=== PATIENT | female | born 1980 | race Caucasian/White ===

== ENCOUNTER 2022-06-17 17:37 | Emergency (ER) | payer OTHER, SELFPAY ==
--- NOTE | ~2022-06-17 | XR_ITS ---
XR hand RT min 3V 06/17/2022 17:51 Indication: Right hand trauma with pain Procedure: 3 views right hand Comparison: No prior studies for comparison. Findings: No acute fracture, subluxation or dislocation. No significant soft tissue abnormality. No f oreign bodies. Impression: 1: No acute fracture. Reviewed, dictated and finalized at location A. ULTING [employer] PROFESSIONAL Impression: 1: No acute fracture.
[2022-06-17 17:43] VITALS: BP 133/105; PULSE 81; RESP 20; TEMP 36.5; O2SAT 100
--- NOTE | 2022-06-17 18:04 | ED.UPPEXIN ---
HPI - Extremity Injury (Upper) General Chief Complaint: Extremity Injury, Upper Stated Complaint: right hand fingers injury Source: patient Mode of arrival: ambulatory Limitations: no limitations History of Present Illness HPI narrative: 41-year-old female presented for complaint of right hand pain after injury at work today. She endorses swelling and bruising to the 2nd finger middle joint. She states a metal bar fell on the hand around 1500. She reports the swelling has gone down. Denies numbness, tingling or weakness of the hand. Tinter Photograph strength is affected due to the swelling, reports full ROM. Applied ice to the site. Related Data Home Medications Medication Instructions Recorded Confirmed apixaban 5 mg tablet (Eliquis) 5 mg PO BID 06/17/22 06/17/22 Allergies Allergy/AdvReac Type Severity Reaction Status Date / Time sulfamethoxazole AdvReac Severe Vomiting Verified 06/17/22 17:47 [From Bactrim] trimethoprim [From Bactrim] AdvReac Severe Vomiting Verified 06/17/22 17:47 ciprofloxacin [From Cipro] AdvReac Intermediate Muscle Pain Verified 06/17/22 17:47 Review of Systems Review of Systems: CONSTITUTIONAL: Denies body aches, fever, chills EYES: Denies visual changes ENT: Denies rhinorrhea, congestion CARDIOVASCULAR: Denies chest pain, palpitations, or edema. RESPIRATORY: Denies cough or dyspnea. GASTROINTESTINAL: Denies abdominal pain, nausea, vomiting, or diarrhea. SKIN: Denies rash, itching, or wounds. MUSCULOSKELETAL: Per HPI NEUROLOGIC: Denies headache, numbness, tingling, or weakness. All systems reviewed & are unremarkable except as noted in HPI and below PMFSH Past Medical History Medical History Calcification of right breast on mammography Comments At time of signature, I have reviewed and agree with nursing past medical, surgical, social and family history unless otherwise noted. Please see nursing chart for further information. There is no relevant family history pertinent to the presenting complaint Exam Narrative: GENERAL: Well-appearing CHEST: Speaks in full sentences. No respiratory distress. HEART: Regular rate and rhythm. Normal and equal peripheral pulses. EXTREMITIES: right hand 2nd digit with mild swelling and bruising to the PIP joint. Hand has normal strength and sensation, normal range of motion to hand. No open wounds or obvious deformity; alignment normal, pulse palpable and equal bilaterally, skin warm, dry, pink. Capillary refill less than 3 seconds. SKIN: Warm, dry, no rash. NEURO: Alert and oriented x3. PSYCH: Normal mood and affect Course Course Emergency Course: Patient is aware of diagnosis, understands and agrees to treatment plan. Anticipatory guidance given. Patient agrees to follow-up as directed and is aware of reasons to seek care at the emergency department. Portions of this record may have been created with voice recognition software Level of Care: Express Care Visit Vital Signs Vital signs: Vital Signs Temperature 97.7 F 06/17/22 17:43 Pulse Rate 81 06/17/22 17:43 Respiratory Rate 20 06/17/22 17:43 Blood Pressure 133/105 H 06/17/22 17:43 Pulse Oximetry 100 06/17/22 17:43 Oxygen Delivery Room Air 06/17/22 17:43 Temperature 97.7 F 06/17/22 17:43 Pulse Rate 81 06/17/22 17:43 Respiratory Rate 20 06/17/22 17:43 Blood Pressure 133/105 H 06/17/22 17:43 Pulse Oximetry 100 06/17/22 17:43 Oxygen Delivery Room Air 06/17/22 17:43 Reviewed MDM - Extremity Injury (Upper) MDM Narrative Medical decision making narrative: results of x-ray reviewed with the patient. Advised supportive measures and signs/symptoms to go to the ER. Pt is appropriate for outpt treatment and f/u. Differential Diagnosis Differential diagnosis: Likely finger sprain, dislocation of finger, fracture of hand and other (contusion, fracture of finger) Imaging Data Radiologist's im
== END 2022-06-17 18:13 | disposition home or self-care (01) ==
PROVIDERS: Emergency Provider Nurse Practitioner Family; PCP Family Medicine
DX: S60.021A Contusion of right index finger without damage to nail, initial encounter (principal); W20.8XXA Other cause of strike by thrown, projected or falling object, initial encounter; Y99.0 Civilian activity done for income or pay
CPT/HCPCS: 73130; 99203; G0463

== ENCOUNTER 2022-07-07 09:17 | Outpatient (CLI) | payer OTHER, SELFPAY ==
--- NOTE | ~2022-07-07 | XR_ITS ---
Left Hand Technique: PA, oblique, and lateral views were obtained. Clinical History: Pain Findings: No acute fracture or dislocation is seen. Osseous alignment is anatomic. There is moderate to advanced degenerative disc narrowing at the third DIP joint. Remaining joint spaces are preserved. Soft tissues are unremarkable. 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 Reviewed, dictated and finalized at [facility]. TUTOR Impression: Moderate to severe degenerative change at the third DIP joint.
--- NOTE | ~2022-07-07 | XR_ITS ---
XR finger 3rd LT min 2V DATE: 07/07/2022 10:09 INDICATION: Lump on left third finger and distal interphalangeal joint for one month TECHNIQUE: 3 views COMPARISON: None FINDINGS: There is soft tissue swelling centered at the distal interphalangeal joint. There is severe joint space narrowing at the distal interphalangeal joint, joint space virtually obliterated, with m ild periarticular spurring. No erosive change. There is moderately prominent narrowing at the proximal interphalangeal joint. No fracture or dislocation, periosteal reaction or bone destruction. No subcutaneous emphysema or rad iopaque soft tissue foreign body. 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 AL OFFICE ASSISTANT IMPRESSION: Prominent soft tissue swelling centered at the distal interphalange al joint Osteoarthritic change at the proximal and particularly distal interphalangeal j jt
== END 2022-07-07 09:18 | disposition home or self-care (01) ==
LOC: CHSIMG 09:21
PROVIDERS: PCP Family Medicine; Visit Provider Family Medicine
DX: R22.32 Localized swelling, mass and lump, left upper limb (principal)
CPT/HCPCS: 73130; 73140

== ENCOUNTER 2022-09-02 16:25 | Emergency (ER) | payer OTHER, SELFPAY ==
[2022-09-02 16:39] VITALS: BP 121/75; PULSE 71; RESP 16; TEMP 36.5; O2SAT 100
--- NOTE | 2022-09-02 16:40 | ED.ANIMALBIT ---
HPI - Animal Bite General Chief Complaint: Animal Bite Stated Complaint: Cat Bite Time Seen by Provider: 09/02/22 16:40 Source: patient and RN notes reviewed History of Present Illness HPI narrative: Patient is a 41-year-old female who presents to urgent care with complaints of a cat bite to the left hand. 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 Patient states that the cat was seen at the vet's office and is up-to-date on vaccinations however did have an infection on its face. Patient is right-hand dominant. States that she clean the wound and has been putting Neosporin on it. No other acute complaints. Denies any fever, nausea or vomiting. Patient aware of the plan of care. Some parts of this dictation were generated by voice recognition software and may contain typographical and/or grammatical inaccuracies. Related Data Home Medications Medication Instructions Recorded Confirmed apixaban 5 mg tablet (Eliquis) 5 mg PO BID 06/17/22 09/02/22 metoprolol succinate 25 mg 25 mg PO DAILY 09/02/22 09/02/22 tablet,extended release 24 hr Allergies Allergy/AdvReac Type Severity Reaction Status Date / Time sulfamethoxazole AdvReac Severe Vomiting Verified 09/02/22 16:38 [From Bactrim] trimethoprim [From Bactrim] AdvReac Severe Vomiting Verified 09/02/22 16:38 ciprofloxacin [From Cipro] AdvReac Intermediate Muscle Pain Verified 09/02/22 16:38 Review of Systems Review of Systems: CONSTITUTIONAL: Denies fever, chills, or sweats. EYES: Denies visual changes, redness, or discharge. ENT: Denies rhinorrhea, congestion, sore throat, or otalgia. CARDIOVASCULAR: Denies chest pain, palpitations, or edema. RESPIRATORY: Denies cough or dyspnea. GASTROINTESTINAL: Denies abdominal pain, nausea, vomiting, or diarrhea. GENITOURINARY: Denies dysuria or hematuria. SKIN: Denies rash or itching. MUSCULOSKELETAL: Reports redness and swelling to the left hand NEUROLOGIC: Denies headache, numbness, or weakness. All other systems reviewed are negative, except as documented in HPI. [facility] Past Medical History Medical History Calcification of right breast on mammography Comments At the time of my signature, I reviewed and agree with the nursing past medical, surgical, social, and family history. There is no relevant family history pertinent to the patient complaint. Exam Narrative: GENERAL: This is a well-nourished, well-developed patient, in no apparent distress. HEAD: normocephalic, atraumatic. EYES: PERRL. Sclera clear/white. Vision is grossly intact. EARS: External ears normal NOSE: External nose normal with no obvious nasal discharge, nares without redness, no rhinorrhea. THROAT: Mucous membranes moist NECK: Neck supple NEURO: awake, alert, and oriented to person, place and time. There were no obvious focal neurologic abnormalities. EXTREMITIES: Mild edema with 5 x 4 cm of erythema surrounding 2 puncture wounds/cat bite to the ulnar aspect of the left dorsal hand. Positive strong left radial pulse with capillary refill less than 2 seconds. Range of motion to left upper extremity within normal limits. Course Course Level of Care: Express Care Visit Vital Signs Vital signs: Vital Signs Temperature 97.7 F 09/02/22 16:39 Pulse Rate 71 09/02/22 16:39 Respiratory Rate 16 09/02/22 16:39 Blood Pressure 121/75 09/02/22 16:39 Pulse Oximetry 100 09/02/22 16:39 Oxygen Delivery Room Air 09/02/22 16:39 Temperature 97.7 F 09/02/22 16:39 Pulse Rate 71 09/02/22 16:39 Respiratory Rate 16 09/02/22 16:39 Blood Pressure 121/75 09/02/22 16:39 Pulse Oximetry 100 09/02/22 16:39 Oxygen Delivery Room Air 09/02/22 16:39 reviewed MDM - Animal Bite MDM Narrative Medical decision making narrative: Advised patient to keep the wound clean with plain dial soap
== END 2022-09-02 16:55 | disposition home or self-care (01) ==
PROVIDERS: Emergency Provider Nurse Practitioner Family; PCP Family Medicine
DX: S61.432A Puncture wound without foreign body of left hand, initial encounter (principal); W55.01XA Bitten by cat, initial encounter
CPT/HCPCS: 99213; G0463

== ENCOUNTER 2022-12-05 12:24 | Outpatient (CLI) | payer OTHER, SELFPAY ==
--- NOTE | 2022-12-05 12:53 | ECG_ITS ---
Measurements Intervals [place] Rate: 82 P: 52 ND: 154 QRS: 66 QRSD: 84 T: -8 QT: 375 QTc: 441 Interpretive Statements SINUS RHYTHM WITH SINUS ARRHYTHMIA LOW QRS VOLTAGE IN PRECORDIAL LEADS [QRS DEFLECTION < 1.0 mV IN CHEST LEADS] NONSPECIFIC T-WAVE ABNORMALITY BORDERLINE ECG NO PREVIOUS ECG AVAILABLE FOR COMPARISON Electronically Signed On 12-05-2022 14:11:04 CDT by Brett Nguyen M.D.
[2022-12-05 13:54] LABS: Hematocrit 40.3 % (37.0-47.0); Hemoglobin 13.3 g/dL (12.0-15.0); Mean Corpuscular Hemoglobin 29.4 pg (26-34); Mean Platelet Volume 9.5 fl (7.4-10.4); Platelet Count Result 275 k/mm3 (150-375); Red Blood Count 4.53 M/mm3 (4.2-5.4); Red Cell Distribution Width 12.5 % (11.5-14.5); White Blood Count 6.7 K/mm3 (4.5-10.0)
== END 2022-12-05 12:25 | disposition home or self-care (01) ==
LOC: ANHSURGERY 12:27
PROVIDERS: PCP Family Medicine; Visit Provider Obstetrics & Gynecology
DX: R00.0 Tachycardia, unspecified (principal); N85.2 Hypertrophy of uterus; Z01.818 Encounter for other preprocedural examination
CPT/HCPCS: 36415; 85027; 86850; 86900; 86901; 93005